=== PATIENT | male | born 1960 | race Caucasian/White ===

== ENCOUNTER 2017-03-09 09:57 | Emergency (ER) | payer BC, OTHER ==
[2017-03-09 10:24] VITALS: BP 121/78
--- NOTE | 2017-03-09 10:59 | UC ---
Headache HPI - HPI Summary HPI Summary: Pt c/o MAIER that began ~ 1.5 months ago. Pt is concerned that he changed allergy nasal spray 2 weeks ago. Pt states that he has managed his MAIER with OTC ibuprofen but states that the MAIER are daily, denies MIgraine like symptoms, denies, numbness, weakness, difficulty speaking, swallowing, ability to smell or taste, denies injury or trauma. - History Of Current Complaint Chief Complaint: UCHeadache Stated Complaint: HEADACHES Time Seen by Provider: 03/09/17 10:36 Hx Obtained From: Patient Onset/Duration: Gradual Onset, Lasting Weeks - 6 Onset Of Symptoms: Gradual, Still Present Initially Headache Was: Moderate - without ibuprofen Character: Dull, Throbbing, Pressure Location of Headache: Frontal, Other: - that spreads to occipital Aggravating Factor(s): Other - not taking NSAID daily Allevating Factor(s): Medication - Risk Factors SAH Risk Factors: Negative Meningitis Risk Factors: Negative SDH Risk Factors: Male - Allergies/Home Medications Allergies/Adverse Reactions: Allergies Allergy/AdvReac Type Severity Reaction Status Date / Time Terbinafine [From Lamisil] Allergy Intermediate Hives Verified 03/09/17 10:15 Mometasone Allergy Headache Verified 03/09/17 10:16 anti fungal pill Allergy Hives Uncoded 03/09/17 10:15 Home Medications: Home Medications Cold And Sinus Otc 1 dose PO QPM PRN 03/09/17 [History Confirmed 03/09/17] PMH/Surg Hx/FS Hx/Imm Hx Previously Healthy: Yes - Surgical History Surgical History: Yes Surgery Procedure, Year, and Place: fatty tumor from back 2000 - Family History Known Family History: Positive: Cardiac Disease - Social History Occupation: Employed Full-time Lives: With Family Alcohol Use: Rare Substance Use Type: None Smoking Status (MU): Former Smoker Have You Smoked in the Last Year: No - Immunization History Most Recent Tetanus Shot: 1997 Review of Systems Constitutional: Negative Skin: Negative Eyes: Negative ENT: Negative Respiratory: Negative Cardiovascular: Negative Gastrointestinal: Negative Genitourinary: Negative Motor: Negative Neurovascular: Negative Musculoskeletal: Negative Neurological: Headache Psychological: Negative Is Patient Immunocompromised?: No All Other Systems Reviewed And Are Negative: Yes Physical Exam Triage Information Reviewed: Yes Appearance: Well-Appearing Vital Signs: Initial Vital Signs Temp 97.5 F 03/09/17 10:07 Pulse 87 03/09/17 10:07 Resp 12 03/09/17 10:07 BP 121/78 03/09/17 10:07 Pulse Ox 100 03/09/17 10:07 Eye Exam: Normal ENT Exam: Normal Dental Exam: Normal Neck exam: Normal Respiratory Exam: Normal Cardiovascular Exam: Normal Musculoskeletal Exam: Normal Neurological Exam: Normal Psychological Exam: Normal Skin Exam: Normal Headache Course/Dx - Course Course Of Treatment: I disucssed with the pt the need tyo follow up BRUNO with his PCP regaridng his MAIER, I offered a CT of head as nothing was apprecitaed on PE that would be indicative of his MAIER. - Differential Dx/Diagnosis Differential Diagnosis/HQI/PQRI: Migraine, Sinus Headache, Tension Headache, Other - mass, tumor Provider Diagnoses: Headache. sinusitis? Brain tumor? Discharge - Discharge Plan Condition: Stable Disposition: HOME Prescriptions: Cetirizine* [ZyrTEC 10 MG TAB*] 10 mg PO DAILY #30 tab Ibuprofen TAB* [Motrin TAB* 800 MG] 800 mg PO Q8H PRN #30 tab PRN Reason: Headache predniSONE TAB* [Deltasone TAB*] 40 mg PO DAILY #8 tab Patient Education Materials: General Headache (ED) Referrals: Yasmani Correia MD [Primary Care Provider] - As Soon As Possible Additional Instructions: Please follow up with your PCP as soon as possible. Please discontinue your allergy nasal spray. Please begin using the prescribed antihistamine instead.
== END 2017-03-09 11:13 | disposition home or self-care (01) ==
LOC: UCCORT 09:57
DX: R51 Headache (principal); Z87.891 Personal history of nicotine dependence
CPT/HCPCS: 99212; G0463

== ENCOUNTER 2017-08-31 08:05 | Day surgery (SDC) | payer BC ==
[~2017-08-31 08:05] MED LIST: Buffered Lidocaine 0.9% SYRIN* 5 ML/SYR SYRINGE INTRADERM ONE
[2017-08-31] MEDS ORDERED: Lidocaine 2% EPI 1:200000 MPF*10-20 ML VIAL ONE (09:38)
[2017-08-31] MEDS ORDERED: Oxymetazoline 0.05% NASAL SPR* 15 ML BTL ONE (09:38)
[2017-08-31] MEDS ORDERED: Triamcinolone Acetonide* 40 MG/ML 1 ML VIAL ONE (09:38)
[2017-08-31] MEDS ORDERED: Gelatin ADSORBABLE (OPHTH)* OPHTH.FILM ONE (09:39)
[2017-08-31] MEDS ORDERED: Gelfoam 12-7 ADSORBABL SPONGE* 1 EA SPONGE ONE (09:39)
[2017-08-31] MEDS ORDERED: fentaNYL* 50 MCG/ML 2 ML VIAL (100 MCG VIAL) ONE ×2 (09:50→10:53)
[2017-08-31] MEDS ORDERED: Lidocaine 2% PF * 5 ML VIAL ONE (09:51)
[2017-08-31] MEDS ORDERED: Propofol* 10 MG/ML 20 ML BTL IV PUSH ONE (09:51)
[2017-08-31] MEDS ORDERED: DiMENhydriNATE IV* 50 MG/ML VIAL IV PUSH PRN (10:16)
[2017-08-31] MEDS ORDERED: oxyCODONE TAB* 5 MG TAB PO PRN (10:16)
[2017-08-31] MEDS ORDERED: Acetaminophen TAB* 325 MG PO PRN (10:16)
[2017-08-31] MEDS ORDERED: Naloxone* 0.4 MG/ML 1 ML VIAL IV PRN (10:16)
[2017-08-31] MEDS ORDERED: fentaNYL* 50 MCG/ML 2 ML VIAL (100 MCG VIAL) IV PRN (10:16)
[2017-08-31] MEDS ORDERED: oxyCODONE TAB* 5 MG TAB ONE (11:28)
[2017-08-31] MEDS ORDERED: Acetaminophen TAB* 325 MG ONE (11:28)
[2017-08-31 12:14] VITALS: BP 146/95
--- NOTE | 2017-09-01 08:34 | OP ---
DATE OF OPERATION: 08/31/17 - SDS DATE OF : 62. SURGEON: Roger Wheeler M.D. PRE-OP DIAGNOSES: Deviated nasal septum, hypertrophied turbinates, nasal dyspnea. POST-OP DIAGNOSES: Deviated nasal septum, hypertrophied turbinates, nasal dyspnea. OPERATIVE PROCEDURE: Septoplasty, submucosal resection of inferior turbinates. BRIEF HISTORY: This 57-year-old gentleman with persistent nasal dyspnea, worse on the right side with the deviated nasal septum to that side elected for surgical management. He failed medical therapy. DESCRIPTION OF PROCEDURE: The patient was taken to the operating room, general anesthesia was given, the patient was intubated, LMA. Nose was decongested with Afrin placed pledgets. 2% lidocaine with epinephrine was infiltrated in the mucosa of the septum and inferior turbinates. Right hemitransfixion incision was created. Mucoperichondrial flap was elevated. Quadrangular cartilage was then elevated off the maxillary crest and off the vomer ethmoidal complex. Portion of the vomer ethmoidal complex was removed which had a large bony spur. Quadrangular cartilage was then scored on its concave surface. A small portion of the floor cartilage was removed. Adequate resection of the floor was carried out to allow good airway. The hemitransfixion was closed in single layer. Pippa splints were applied, secured with 2-0 silk. Then we turned our attention to the inferior turbinates. Inferior turbinate resection was carried out bilaterally. Submucosal resection was carried out, removing some of the soft tissue and bone. Cauterization of the area was carried out for hemostasis. The patient was then awakened and sent to recovery room in stable condition. Instrument and sponge counts were correct. Blood loss minimal. [id number] #: [id number] [facility]
== END 2017-08-31 12:15 | disposition home or self-care (01) ==
LOC: OR 08:05
PROVIDERS: ATTEND Otolaryngology
DX: J34.2 Deviated nasal septum (principal); J34.3 Hypertrophy of nasal turbinates; J31.0 Chronic rhinitis; G43.909 Migraine, unspecified, not intractable, without status migrainosus; D64.9 Anemia, unspecified; E78.5 Hyperlipidemia, unspecified
CPT/HCPCS: A9270-GY; J2704; J3010; J3301